=== PATIENT | female | born 1995 | race Asian ===

== ENCOUNTER 2022-01-26 18:42 | Emergency (ER) | payer OTHER ==
[~2022-01-26] VITALS: Ht 170.2 cm; Wt 63.6 kg
[2022-01-26 18:48] VITALS: BP 114/55; PULSE 68; TEMP 97.8
[2022-01-26] MEDS ORDERED: AMOXICILLIN 8751 TAB PO (19:29)
== END 2022-01-26 19:35 | disposition home or self-care (01) ==
LOC: COL.ER 18:42
DX: S60.811A Abrasion of right wrist, initial encounter (principal); W55.01XA Bitten by cat, initial encounter; Y92.59 Other trade areas as the place of occurrence of the external cause; Y99.0 Civilian activity done for income or pay